=== PATIENT | male | born 2000 | race Caucasian/White ===

== ENCOUNTER 2020-07-06 02:20 | Observation (INO) ==
[2020-07-06] MEDS ORDERED: Ondansetron 4 MG/2 ML VIAL IVP PRN (11:53)
[2020-07-06] MEDS ORDERED: Naloxone 0.4 MG/ML INJ IVP PRN (11:53)
[2020-07-06] MEDS ORDERED: *HR* LORazepam 2 MG/ML VIAL IVP PRN ×3 (11:54)
[2020-07-06] MEDS ORDERED: Acetaminophen 325 MG TABLET PO PRN (12:04)
[2020-07-06] MEDS: 0.9 % Sodium Chloride 1,000 ML IVC SCH (13:39)
[2020-07-06] MEDS: Nicotine 21 MG PATCH.TD24 TD SCH (17:14)
[2020-07-06] MEDS ORDERED: Thiamine (B-1) 100 MG, Folic Acid 1 MG, MVI, adult with vitamin K 10 ML in 0.9 % Sodi... IVPB SCH (18:00)
[2020-07-07] MEDS: 0.9 % Sodium Chloride 1,000 ML IVC SCH (04:51)
[2020-07-07 05:05] LABS: Basophils # 0.1 K/mcL (0.0-0.2); Basophils % 0.6 %; Eosinophils # 0.9 K/mcL (0.0-0.6); Eosinophils % 10.8 %; Hemoglobin 13.5 g/dL (12.9-16.9); Immature Granulocytes % 0.2 % (0-4); Lymphocytes # 3.2 K/mcL (0.6-4.6); Mean Corpuscular HGB Conc 33.8 g/dL (31.6-35.5); Mean Corpuscular Hemoglobin 32.1 pg (28.0-33.3); Mean Corpuscular Volume 95.2 fL (83.0-100.0); Mean Platelet Volume 10.8 fL (9.4-12.4); Monocytes # 0.7 K/mcL (0.0-1.3); Monocytes % 8.3 %; Neutrophils # 3.5 K/mcL (1.6-8.9); Platelet Count 211 K/mcL (140-400); Red Cell Distribution Width 11.9 % (11.5-14.5); Segmented Neutrophils % 42.1 %; White Blood Count 8.3 K/mcL (4.3-11.1)
[2020-07-07 05:21] LABS: Alanine Aminotransferase 11 Units/L (7-52); Albumin 4.2 g/dL (3.5-5.7); Albumin/Globulin Ratio 1.8 (1.1-2.2); Alkaline Phosphatase 64 Units/L (34-104); Aspartate Amino Transferase 15 Units/L (13-39); BUN/Creatinine Ratio 11 (6-26); Bilirubin,Total 0.7 mg/dL (0.3-1.0); Blood Urea Nitrogen 10 mg/dL (6-20); Calcium 9.3 mg/dL (8.6-10.3); Carbon Dioxide 28 mEq/L (23-29); Chloride 108 mEq/L (98-107); Globulin 2.4 g/dL (2.4-3.5); Glucose 94 mg/dL (70-105); Osmolality,Calculated 291 (280-300); Potassium 3.6 mEq/L (3.5-5.1); Sodium 141 mEq/L (136-145); Total Protein 6.6 g/dL (6.4-8.9); eGFR For African Americans > 60 (> 60); eGFR For Non-African Americans > 60 (> 60)
[2020-07-07 07:01] VITALS: BP 107/65
[2020-07-07] MEDS: Nicotine 21 MG PATCH.TD24 TD SCH (07:27)
== END 2020-07-07 12:06 | disposition home or self-care (01) ==
LOC: EMEROOARM 02:20 → 3BNU 02:20 → SUATTDRO 12:14 → 3BNU 12:40
PROVIDERS: ADMIT Internal Medicine; ATTEND Internal Medicine